=== PATIENT | male | born 1995 | race Caucasian/White ===

== ENCOUNTER 2018-05-23 17:37 | Emergency (ER) | payer SELFPAY ==
[2018-05-23] MEDS ORDERED: TOPI-120 PO (17:59)
[2018-05-23] MEDS ORDERED: MONT10TA PO (17:59)
[2018-05-23 18:54] LABS: PLATELET COUNT, AUTOMATED 331 K/uL (150-450)
--- NOTE | 2018-05-23 19:13 | ER Report ---
History and Physical Time Seen By MD: 18:05 Hx. of Stated Complaint: PAIN IN BOTH SIDES KIDNEYS ONSET April, HX CALCULI HPI/ROS CHIEF COMPLAINT: abdominal pain HISTORY OF PRESENT ILLNESS: Pt developed pain initially near the end of April, intermittent, constant x 1 week; has had bilateral pain that feels like prior kidney stone (last in 5th grade, first at age 6 mo; has always passed on his own , has only been to ED 1 time previously). Pain is greater on right, radiates from flank to right groin. Associated with nausea and intermittent vomiting, no bloody or bilious, has had recent blood in urine, though notes none today REVIEW OF SYSTEMS: Constitutional: No fever, no chills. Eyes: No discharge. ENT: No sore throat. Cardiovascular: No chest pain, no palpitations. Respiratory: No cough, no shortness of breath. Gastrointestinal: above Genitourinary: + hematuria Musculoskeletal: No back pain. Skin: No rashes. Neurological: No headache. Remainder of the 14 system rev: Yes Allergies: Coded Allergies: No Known Drug Allergies (Unverified , 05/23/18) Home Meds Reported Medications Montelukast Sodium (SINGULAIR) 10 Mg Tablet, 1 TAB PO QDAY, TAB 05/23/18 Topiramate (TOPAMAX) 50 Mg Tablet, 50 MG PO BID 05/23/18 Past Medical/Surgical History prior kidney stones Reviewed Nurses Notes: Yes Constitutional Vital Sign - Last 24 Hours 05/23/18 05/23/18 05/23/18 05/23/18 17:50 17:53 18:37 19:07 Pulse 88 83 86 Resp 16 B/P (MAP) 150/91 (110) 150/91 Pulse Ox 98 95 95 O2 Delivery Room Air 05/23/18 05/23/18 05/23/18 05/23/18 19:12 19:42 20:22 20:27 Pulse 97 97 88 98 B/P (MAP) 129/89 (102) Pulse Ox 96 99 97 97 Physical Exam General Appearance: The patient is alert, has no immediate need for airway protection and no signs of toxicity. Eyes: Pupils equal and round no pallor or injection. ENT, Mouth: Mucous membranes are moist. Respiratory: There are no retractions, lungs are clear to auscultation. Cardiovascular: Regular rate and rhythm. [ ] Gastrointestinal: mild rlq ttp Neurological: alert, oriented, nad Skin: Warm and dry, no rashes. Musculoskeletal: Neck is supple non tender. Extremities are nontender, nonswollen and have full range of motion. [ ] DIFFERENTIAL DIAGNOSIS: After history and physical exam differential diagnosis was considered for kidney stone, appendicitis, pyelo or other emergent etiology Medical Decision Making Data Points Result Diagram: 05/23/18 1847 05/23/18 1847 Laboratory Hematology Test 05/23/18 17:45 05/23/18 18:47 Urine Color Straw Urine Clarity Clear Urine pH 6.0 pH (4.8-9.5) Urine Specific [place] 1.013 Urine Protein Negative mg/dL (NEGATIVE) Urine Glucose (UA) Negative mg/dL (NEGATIVE) Urine Ketones Negative mg/dL (NEGATIVE) Urine Blood Negative (NEGATIVE) Urine Nitrite Negative (NEGATIVE) Urine Bilirubin Negative (NEGATIVE) Urine Urobilinogen Negative mg/dL (0.2-1.9) Urine Leukocyte Esterase Negative (NEGATIVE) Urine RBC None /HPF (0-2/HPF) Urine WBC 1 /HPF (0-5/HPF) Urine Squamous Epithelial Cells None /LPF (</=FEW) Urine Bacteria Negative /HPF (NONE-FEW) Urine Mucus None /HPF (NONE-FEW) Red Blood Count 4.98 M/uL (4.00-5.60) Mean Corpuscular Volume 82.6 fL (80.0-96.0) Mean Corpuscular Hemoglobin 30.4 pg (26.0-33.0) Mean Corpuscular Hemoglobin Concent 36.8 g/dL (32.0-36.0) Red Cell Distribution Width 12.9 % (11.5-14.5) Mean Platelet Volume 7.0 fL (7.2-11.1) Neutrophils (%) (Auto) 65.1 % (39.4-72.5) Lymphocytes (%) (Auto) 27.1 % (17.6-49.6) Monocytes (%) (Auto) 6.1 % (4.1-12.4) Eosinophils (%) (Auto) 1.2 % (0.4-6.7) Basophils (%) (Auto) 0.5 % (0.3-1.4) Nucleated RBC Relative Count (auto) 0.0 /100WBC Neutrophils # (Auto) 4.4 K/uL (2.0-7.4) Lymphocytes # (Auto) 1.9 K/uL (1.3-3.6) Monocytes # (Auto) 0.4 K/uL (0.3-1.0) Eosinophils # (Auto) 0.1 K/uL (0.0-0.5) Basophils # (Auto) 0.0 K/uL (0.0-0.1) Nucleated RBC Absolute Count (auto) 0.00 K/uL Sodium Level 144 mmol/L (137-145) Potassium Level 3.8 mmol/L (3.5-5.0) Chloride Level 107 mmol/L (98-107) Carbon Dioxide Level 22 mmol/L (22-30) Blood Urea Nitrogen 20 mg/dl (9-21) Creatinine 0.90 mg/dl (0.66-1.25) Glomerular Filtration Rate Calc > 60.0 Random Glucose 100 mg/dl (75-110) Calcium Level 9.8 mg/dl (8.4-10.2) Total Bilirubin 0.4 mg/dl (0.2-1.3) Aspartate Amino Transf (AST/SGOT) 14 U/L (0-35) Alanine Aminotransferase (ALT/SGPT) 24 U/L (0-56) Alkaline Phosphatase 64 U/L (0-126) Total Protein 7.3 g/dl (6.3-8.2) Albumin 4.6 g/dl (3.5-5.0) Lipase 67 U/L (23-300) Chemistry Test 05/23/18 17:45 05/23/18 18:47 Urine Color Straw Urine Clarity Clear Urine pH 6.0 pH (4.8-9.5) Urine Specific [place] 1.013 Urine Protein Negative mg/dL (NEGATIVE) Urine Glucose (UA) Negative mg/dL (NEGATIVE) Urine Ketones Negative mg/dL (NEGATIVE) Urine Blood Negative (NEGATIVE) Urine Nitrite Negative (NEGATIVE) Urine Bilirubin Negative (NEGATIVE) Urine Urobilinogen Negative mg/dL (0.2-1.9) Urine Leukocyte Esterase Negative (NEGATIVE) Urine RBC None /HPF (0-2/HPF) Urine WBC 1 /HPF (0-5/HPF) Urine Squamous Epithelial Cells None /LPF (</=FEW) Urine Bacteria Negative /HPF (NONE-FEW) Urine Mucus None /HPF (NONE-FEW) White Blood Count 6.8 k/uL (4.5-11.0) Red Blood Count 4.98 M/uL (4.00-5.60) Hemoglobin 15.1 g/dL (14.0-18.0) Hematocrit 41.2 % (42.0-52.0) Mean Corpuscular Volume 82.6 fL (80.0-96.0) Mean Corpuscular Hemoglobin 30.4 pg (26.0-33.0) Mean Corpuscular Hemoglobin Concent 36.8 g/dL (32.0-36.0) Red Cell Distribution Width 12.9 % (11.5-14.5) Platelet Count 331 K/uL (150-450) Mean Platelet Volume 7.0 fL (7.2-11.1) Neutrophils (%) (Auto) 65.1 % (39.4-72.5) Lymphocytes (%) (Auto) 27.1 % (17.6-49.6) Monocytes (%) (Auto) 6.1 % (4.1-12.4) Eosinophils (%) (Auto) 1.2 % (0.4-6.7) Basophils (%) (Auto) 0.5 % (0.3-1.4) Nucleated RBC Relative Count (auto) 0.0 /100WBC Neutrophils # (Auto) 4.4 K/uL (2.0-7.4) Lymphocytes # (Auto) 1.9 K/uL (1.3-3.6) Monocytes # (Auto) 0.4 K/uL (0.3-1.0) Eosinophils # (Auto) 0.1 K/uL (0.0-0.5) Basophils # (Auto) 0.0 K/uL (0.0-0.1) Nucleated RBC Absolute Count (auto) 0.00 K/uL Glomerular Filtration Rate Calc > 60.0 Calcium Level 9.8 mg/dl (8.4-10.2) Total Bilirubin 0.4 mg/dl (0.2-1.3) Aspartate Amino Transf (AST/SGOT) 14 U/L (0-35) Alanine Aminotransferase (ALT/SGPT) 24 U/L (0-56) Alkaline Phosphatase 64 U/L (0-126) Total Protein 7.3 g/dl (6.3-8.2) Albumin 4.6 g/dl (3.5-5.0) Lipase 67 U/L (23-300) Urinalysis Test 05/23/18 17:45 Urine Color Straw Urine Clarity Clear Urine pH 6.0 pH (4.8-9.5) Urine Specific [place] 1.013 Urine Protein Negative mg/dL (NEGATIVE) Urine Glucose (UA) Negative mg/dL (NEGATIVE) Urine Ketones Negative mg/dL (NEGATIVE) Urine Blood Negative (NEGATIVE) Urine Nitrite Negative (NEGATIVE) Urine Bilirubin Negative (NEGATIVE) Urine Urobilinogen Negative mg/dL (0.2-1.9) Urine Leukocyte Esterase Negative (NEGATIVE) Urine RBC None /HPF (0-2/HPF) Urine WBC 1 /HPF (0-5/HPF) Urine Squamous Epithelial Cells None /LPF (</=FEW) Urine Bacteria Negative /HPF (NONE-FEW) Urine Mucus None /HPF (NONE-FEW) ED Course/Re-evaluation ED Course Pt refused pain medications. I performed bedside US; mild hydro on right, bilateral ureteral jets I reviewed ct with patient; pt states he has meds at home and does not want further treatment; he just wanted to make sure he would most likely pass stone. Decision to Disposition Date: May 23, 2018 Decision to Disposition Time: 20:15 Depart Departure Latest Vital Signs Vital Signs Date Time Temp Pulse Resp B/P (MAP) Pulse Ox O2 Delivery O2 Flow Rate FiO2 05/23/18 20:27 98 129/89 (102) 97 05/23/18 17:53 16 Room Air Impression: Primary Impression: Kidney stone on right side Condition: Improved Disposition: HOME OR SELF-CARE Patient Instructions: Kidney Stones (ED) TERENCE ROBERTS MD May 23, 2018 19:12
--- NOTE | 2018-05-23 19:21 | RADIOLOGY IMAGING REPORT ---
FACILITY: [facility] PATIENT NAME: Gage Chapa : 1995 MR: [id number] V: [id number] EXAM DATE: ORDERING PHYSICIAN: TERENCE ROBERTS TECHNOLOGIST: Location: [facility] - [place] Patient: Gage Chapa : 1995 Visit/Account:[id number] Date of Sevice: 05/23/2018 EXAMINATION: CT ABDOMEN AND PELVIS WITHOUT CONTRAST COMPARISON: None. HISTORY: Right-sided flank pain. PROCEDURE: Multiplanar noncontrast CT of the abdomen and pelvis. One of the following dose optimizati on techniques was utilized in the performance of this exam: Automated exposure control; adjustment of the mA and/or kV according to the patient's size; or use of an iterative reconstruction technique. Specific details can be referenced in the facility's radiology CT exam operational policy. FINDINGS: Evaluation of the solid and viscus parenchymal organs and vascular structures is limited wi thout the benefit of IV contrast. Visualized thorax: Negative. Liver: Noncontrast imaging of the visualized liver is within normal limits. Gallbladder and biliary system: Negative Spleen: Negative. Pancreas: Noncontrast imaging of the pancreas is within normal limits. Adrenal glands: Negative. Kidneys and bladder: Mild right-sided hydroureteronephrosis due to a 4 mm stone in the distal right u reter approximately 6 cm from the ureterovesical junction. No other radiopaque urolithiasis is identi fied. No left-sided hydronephrosis. Urinary bladder is unremarkable. Vessels: Within normal limits. Bowel and mesentery: Stomach, small bowel, and appendix are unremarkable. Small amount of stool in th e colon. No bowel or mesenteric inflammation. Pelvic organs: Negative. Lymph nodes: No adenopathy. Free air/free fluid: None. Abdominal wall and osseous structures: Negative. IMPRESSION: Mild right-sided hydroureteronephrosis due to a 4 mm stone in the distal right ureter approximately 6 cm from the ureterovesical junction. Report Dictated By: Jayden Craft MD at 05/23/2018 7:13 PM Report E-Signed By: Jayden Craft MD at 05/23/2018 7:16 PM [id number]
[2018-05-23 20:27] VITALS: BP 129/89
== END 2018-05-23 20:26 | disposition home or self-care (01) ==
LOC: ER 18:32
DX: N20.0 Calculus of kidney (principal); Z87.442 Personal history of urinary calculi
CPT/HCPCS: 36415; 74176; 81001; 82040; 82247; 82310; 82374; 82435; 82565; 82947; 83690; 84075; 84132; 84155; 84295; 84450; 84460; 84520; 85025; 99284

== ENCOUNTER 2018-05-31 03:21 | Day surgery (SDC) | payer BC ==
[~2018-05-31 03:21] MED LIST: MONT10TA PO; TOPI-120 PO
--- NOTE | 2018-05-31 03:33 | ER Report ---
History and Physical Time Seen By MD: 03:35 HPI/ROS CHIEF COMPLAINT: right flank and abdominal pain HISTORY OF PRESENT ILLNESS: This is a 22 year old male. He was seen 1 week ago here in the ER and diagnosed with a kidney stone. Home with conservative management after CT scan and bedside ultrasound diagnosed a 4mm stone about 6cm from the UVJ. Still having pain all week, worsening. Now with worsened pain, worsening nausea/vomiting. Has been working through the pain, using over the counter anti-inflammatories. No fevers or chills at this time. Difficult time urinating. Nothing makes the pain worse and nothing is really helping it at this time. Allergies: Coded Allergies: No Known Drug Allergies (Unverified , 05/23/18) Home Meds Reported Medications Hydrocodone Bit/Acetaminophen (NORCO 5-325 TABLET) 1 Each Tablet, 1-2 EACH PO Q6H Y for PAIN, #30 TAB 05/31/18 Docusate Sodium (COLACE) 100 Mg Capsule, 100 MG PO BID for STOOL SOFTENER, #30 CAPSULE 05/31/18 Ibuprofen (IBUPROFEN) 600 Mg Tablet, 1 TAB PO Q6H Y for PAIN, #20 TAB 05/31/18 Oxybutynin Chloride (DITROPAN XL) 10 Mg Tab.er.24, 10 MG PO QDAY, #20 TAB 05/31/18 Phenazopyridine Hcl (PHENAZOPYRIDINE HCL) 200 Mg Tablet, 200 MG PO TID Y for BURNING WITH URINATION, #30 TAB 05/31/18 Montelukast Sodium (SINGULAIR) 10 Mg Tablet, 1 TAB PO QDAY, TAB 05/23/18 Topiramate (TOPAMAX) 50 Mg Tablet, 50 MG PO BID 05/23/18 Reviewed Nurses Notes: Yes Constitutional Vital Sign - Last 24 Hours 05/31/18 05/31/18 05/31/18 05/31/18 03:28 03:34 03:36 03:51 Temp 98.9 Pulse 91 89 92 Resp 16 B/P (MAP) 140/99 142/94 (110) Pulse Ox 98 96 96 O2 Delivery Room Air 05/31/18 05/31/18 05/31/18 05/31/18 04:00 04:06 04:23 04:30 Pulse 87 B/P (MAP) 146/97 (113) 133/84 (100) 124/79 (94) 05/31/18 05/31/18 05/31/18 05/31/18 04:36 04:51 05:00 05:06 Pulse 77 83 85 B/P (MAP) 131/87 (102) Pulse Ox 95 96 99 05/31/18 05/31/18 05/31/18 05/31/18 05:11 05:30 05:41 05:56 Pulse 81 77 81 B/P (MAP) 131/86 (101) Pulse Ox 97 97 96 05/31/18 05/31/18 05/31/18 05/31/18 06:00 06:05 06:10 06:15 Pulse 73 82 ??? B/P (MAP) 119/83 (95) Pulse Ox 95 96 95 05/31/18 05/31/18 05/31/18 05/31/18 06:20 06:25 06:30 06:35 Pulse 75 74 70 67 B/P (MAP) 125/85 (98) Pulse Ox 96 94 95 05/31/18 05/31/18 05/31/18 05/31/18 06:40 06:45 07:00 07:15 Pulse 67 64 76 B/P (MAP) 123/86 (98) Pulse Ox 94 94 97 05/31/18 05/31/18 05/31/18 07:30 07:45 07:50 Pulse 82 82 Resp 9 13 B/P (MAP) 124/88 (100) Pulse Ox 95 96 Physical Exam General Appearance: The patient is alert. Acute distress due to the pain and vomiting. Eyes: Pupils are equal, round. No pallor, injection or icterus. ENT: Mucous membranes are moist. Respiratory: Lungs are clear to auscultation. Cardiovascular: Regular rate and rhythm. No murmurs, gallops or rubs. Gastrointestinal: Abdomen is soft with some tenderness in the right abdomen and flank at the CVA on the right. Guarding, but no rebound. Normal active bowel sounds. Neurological: Alert and oriented x3. Skin: Warm and dry. Musculoskeletal: Extremities are nontender. No tenderness in palpation of the cervical, thoracic and lumbar spine. DIFFERENTIAL DIAGNOSIS: After history and physical exam, differential diagnosis was considered for ongoing pain on the right abdomen with history of recent stone, sounds like the stone is not passed and most likely this is further pain from kidney stone Medical Decision Making Data Points Result Diagram: 05/31/18 0334 05/31/18 0334 Laboratory Hematology Test 05/31/18 03:26 05/31/18 03:34 Urine Color Yellow Urine Clarity Clear Urine pH 5.0 pH (4.8-9.5) Urine Specific [place] 1.019 Urine Protein Negative mg/dL (NEGATIVE) Urine Glucose (UA) Negative mg/dL (NEGATIVE) Urine Ketones Negative mg/dL (NEGATIVE) Urine Blood Small (NEGATIVE) Urine Nitrite Negative (NEGATIVE) Urine Bilirubin Negative (NEGATIVE) Urine Urobilinogen Negative mg/dL (0.2-1.9) Urine Leukocyte Esterase Negative (NEGATIVE) Urine RBC 7 /HPF (0-2/HPF) Urine WBC 2 /HPF (0-5/HPF) Urine Squamous Epithelial Cells None /LPF (</=FEW) Urine Bacteria Negative /HPF (NONE-FEW) Urine Mucus Few /HPF (NONE-FEW) Red Blood Count 4.97 M/uL (4.00-5.60) Mean Corpuscular Volume 83.3 fL (80.0-96.0) Mean Corpuscular Hemoglobin 30.8 pg (26.0-33.0) Mean Corpuscular Hemoglobin Concent 36.9 g/dL (32.0-36.0) Red Cell Distribution Width 13.1 % (11.5-14.5) Mean Platelet Volume 7.5 fL (7.2-11.1) Neutrophils (%) (Auto) % (39.4-72.5) Lymphocytes (%) (Auto) % (17.6-49.6) Monocytes (%) (Auto) % (4.1-12.4) Eosinophils (%) (Auto) % (0.4-6.7) Basophils (%) (Auto) % (0.3-1.4) Nucleated RBC Relative Count (auto) /100WBC Neutrophils # (Auto) K/uL (2.0-7.4) Lymphocytes # (Auto) K/uL (1.3-3.6) Monocytes # (Auto) K/uL (0.3-1.0) Eosinophils # (Auto) K/uL (0.0-0.5) Basophils # (Auto) K/uL (0.0-0.1) Nucleated RBC Absolute Count (auto) K/uL Neutrophils % (Manual) 87 % (39.4-72.5) Band Neutrophils % 1 % Lymphocytes % (Manual) 7 % (17.6-49.6) Atypical Lymphocytes % 3 % Monocytes % (Manual) 2 % (4.1-12.4) Eosinophils % (Manual) 0 % (0.4-6.7) Basophils % (Manual) 0 % (0.3-1.4) Peripheral Blood Smear Yes Y/N Sodium Level 138 mmol/L (137-145) Potassium Level 3.4 mmol/L (3.5-5.0) Chloride Level 107 mmol/L (98-107) Carbon Dioxide Level 18 mmol/L (22-30) Blood Urea Nitrogen 20 mg/dl (9-21) Creatinine 1.40 mg/dl (0.66-1.25) Glomerular Filtration Rate Calc > 60.0 Random Glucose 122 mg/dl (75-110) Calcium Level 9.6 mg/dl (8.4-10.2) Total Bilirubin 0.7 mg/dl (0.2-1.3) Aspartate Amino Transf (AST/SGOT) 14 U/L (0-35) Alanine Aminotransferase (ALT/SGPT) 21 U/L (0-56) Alkaline Phosphatase 73 U/L (0-126) C-Reactive Protein 0.5 mg/dl (<1.0) Total Protein 7.3 g/dl (6.3-8.2) Albumin 4.8 g/dl (3.5-5.0) Chemistry Test 05/31/18 03:26 05/31/18 03:34 Urine Color Yellow Urine Clarity Clear Urine pH 5.0 pH (4.8-9.5) Urine Specific [place] 1.019 Urine Protein Negative mg/dL (NEGATIVE) Urine Glucose (UA) Negative mg/dL (NEGATIVE) Urine Ketones Negative mg/dL (NEGATIVE) Urine Blood Small (NEGATIVE) Urine Nitrite Negative (NEGATIVE) Urine Bilirubin Negative (NEGATIVE) Urine Urobilinogen Negative mg/dL (0.2-1.9) Urine Leukocyte Esterase Negative (NEGATIVE) Urine RBC 7 /HPF (0-2/HPF) Urine WBC 2 /HPF (0-5/HPF) Urine Squamous Epithelial Cells None /LPF (</=FEW) Urine Bacteria Negative /HPF (NONE-FEW) Urine Mucus Few /HPF (NONE-FEW) White Blood Count 11.2 k/uL (4.5-11.0) Red Blood Count 4.97 M/uL (4.00-5.60) Hemoglobin 15.3 g/dL (14.0-18.0) Hematocrit 41.4 % (42.0-52.0) Mean Corpuscular Volume 83.3 fL (80.0-96.0) Mean Corpuscular Hemoglobin 30.8 pg (26.0-33.0) Mean Corpuscular Hemoglobin Concent 36.9 g/dL (32.0-36.0) Red Cell Distribution Width 13.1 % (11.5-14.5) Platelet Count 274 K/uL (150-450) Mean Platelet Volume 7.5 fL (7.2-11.1) Neutrophils (%) (Auto) % (39.4-72.5) Lymphocytes (%) (Auto) % (17.6-49.6) Monocytes (%) (Auto) % (4.1-12.4) Eosinophils (%) (Auto) % (0.4-6.7) Basophils (%) (Auto) % (0.3-1.4) Nucleated RBC Relative Count (auto) /100WBC Neutrophils # (Auto) K/uL (2.0-7.4) Lymphocytes # (Auto) K/uL (1.3-3.6) Monocytes # (Auto) K/uL (0.3-1.0) Eosinophils # (Auto) K/uL (0.0-0.5) Basophils # (Auto) K/uL (0.0-0.1) Nucleated RBC Absolute Count (auto) K/uL Neutrophils % (Manual) 87 % (39.4-72.5) Band Neutrophils % 1 % Lymphocytes % (Manual) 7 % (17.6-49.6) Atypical Lymphocytes % 3 % Monocytes % (Manual) 2 % (4.1-12.4) Eosinophils % (Manual) 0 % (0.4-6.7) Basophils % (Manual) 0 % (0.3-1.4) Peripheral Blood Smear Yes Y/N Glomerular Filtration Rate Calc > 60.0 Calcium Level 9.6 mg/dl (8.4-10.2) Total Bilirubin 0.7 mg/dl (0.2-1.3) Aspartate Amino Transf (AST/SGOT) 14 U/L (0-35) Alanine Aminotransferase (ALT/SGPT) 21 U/L (0-56) Alkaline Phosphatase 73 U/L (0-126) C-Reactive Protein 0.5 mg/dl (<1.0) Total Protein 7.3 g/dl (6.3-8.2) Albumin 4.8 g/dl (3.5-5.0) Urinalysis Test 05/31/18 03:26 Urine Color Yellow Urine Clarity Clear Urine pH 5.0 pH (4.8-9.5) Urine Specific [place] 1.019 Urine Protein Negative mg/dL (NEGATIVE) Urine Glucose (UA) Negative mg/dL (NEGATIVE) Urine Ketones Negative mg/dL (NEGATIVE) Urine Blood Small (NEGATIVE) Urine Nitrite Negative (NEGATIVE) Urine Bilirubin Negative (NEGATIVE) Urine Urobilinogen Negative mg/dL (0.2-1.9) Urine Leukocyte Esterase Negative (NEGATIVE) Urine RBC 7 /HPF (0-2/HPF) Urine WBC 2 /HPF (0-5/HPF) Urine Squamous Epithelial Cells None /LPF (</=FEW) Urine Bacteria Negative /HPF (NONE-FEW) Urine Mucus Few /HPF (NONE-FEW) EKG/Imaging Imaging ABDOMEN/PELVIS W/O CONTRAST HISTORY: Right flank pain and nausea and vomiting. Scan several days ago demonstrated right ureteral stone. Patient states no knowledge of stone passing. COMPARISON: 05/23/2018. TECHNIQUE: Axial images were obtained from the lung bases through the symphysis pubis without intravenous contrast. Sagittal and coronal reformats were performed. One of the following dose optimization techniques was utilized in the performance of this exam: Automated exposure control; adjustment of the mA and/ or kV according to the patient's size; or use of an iterative reconstruction technique. Specific details can be referenced in the facility's radiology CT exam operational policy. CONTRAST: None. FINDINGS: Lower chest: Normal. Liver: Normal. Gallbladder/biliary: Normal. Pancreas: Normal. Spleen: Enlarged, measuring 14.7 cm (sagittal image 99). Adrenals: Normal. Kidneys/ureters/bladder: Right-sided hydronephrosis and hydroureter have progressed, now moderate, and there is new right perinephric and periureteral stranding. 5 mm obstructing distal right ureteral calculus has migrated more inferiorly and is now within 1.5 cm of the bladder. The left kidney, the left ureter, and the bladder are normal. GI/mesentery/peritoneal cavity: There is no bowel obstruction. There is no wall thickening or pericolonic stranding. The appendix is normal. No free air or free fluid. Vessels: No aneurysm or significant atherosclerotic disease. Nodes: Normal. Pelvis: Normal. Bones/vertebra/soft tissues: Minimal wedging of T11 and T12 is unchanged and is likely physiologic. There is mild degenerative disc disease. IMPRESSION: 1. The 5 mm obstructing calculus in the right ureter has migrated to within 1.5 cm of the latter. It is causing persistent hydronephrosis and hydroureter, which has progressed and is now moderate. There is also new mild right perinephric and periureteral stranding. 2. Splenomegaly. Report Dictated By: Honey Guevara at 05/31/2018 4:37 AM ED Course/Re-evaluation Clinical Indication for ER IV: Hydration, IV Access ED Course The patient had an IV started. We gave him morphine, Toradol for pain. Also gave some Zofran to help with the nausea. He also received a liter fluid. Did give him an oral dose of 0.[address] scan shows the stone is moved, but there is no moderate hydronephrosis and his creatinine has elevated. He does have a slight elevated white count with left shift with a little bit of perinephric stranding. Reviewed the findings with the patient and discussed that we would either continue conservative management, or discuss other options with the urologist, Dr. Carrion. I called Dr. Carrion, who indicated that either way would be fine at this time and he could get him on the morning schedule in the OR for ureteroscopy and possible ESWL today. Discussed this with the patient and he will stay to have Dr. Carrion look at what can be done. We let the nursing maintenance and custodian supervisor know and will be planning on intervention today. The patient has been NPO since about 8pm last night. The only intake has been a small sip of water with the Flomax this morning. Decision to Disposition Date: May 31, 2018 Decision to Disposition Time: 05:32 Depart Departure Latest Vital Signs Vital Signs Date Time Temp Pulse Resp B/P (MAP) Pulse Ox O2 Delivery O2 Flow Rate FiO2 05/31/18 07:50 82 13 96 05/31/18 07:30 124/88 (100) 05/31/18 03:28 98.9 Room Air Impression: Primary Impression: Kidney stone on right side Condition: Condition Unchanged Disposition[facility] May 31, 2018 03:33
[2018-05-31] MEDS ORDERED: KETOROLAC 30 MG/ML VIAL IVP ONE (03:50)
[2018-05-31] MEDS ORDERED: ONDANSETRON 4 MG/2 ML VIAL IVP ONE (03:50)
[2018-05-31] MEDS ORDERED: MORPHINE 4 MG/ML SDV IVP ONE (03:50)
[2018-05-31] MEDS ORDERED: NS(*) 0.9% 1000 ML BAG 1,000 ML IV ONE (03:50)
[2018-05-31] MEDS ORDERED: TAMSULOSIN HCL 0.4 MG CAP PO ONE (03:50)
[2018-05-31 04:09] LABS: PLATELET COUNT, AUTOMATED 274 K/uL (150-450)
--- NOTE | 2018-05-31 04:49 | RADIOLOGY IMAGING REPORT ---
FACILITY: PATIENT NAME: Gage Chapa : 1995 MR: [id number] V: [id number] EXAM DATE: ORDERING PHYSICIAN: SHAE MURO TECHNOLOGIST: Location[place] [facility] [place] Patient: Gage Chapa : 1995 Visit/Account:[id number] Date of Sevice: 05/31/2018 ABDOMEN/PELVIS W/O CONTRAST HISTORY: Right flank pain and nausea and vomiting. Scan several days ago demonstrated right ureteral stone. Patient states no knowledge of stone passing. COMPARISON: 05/23/2018. TECHNIQUE: Axial images were obtained from the lung bases through the symphysis pubis without intrave nous contrast. Sagittal and coronal reformats were performed. One of the following dose optimization techniques was utilized in the performance of this exam: Autom ated exposure control; adjustment of the mA and/or kV according to the patient's size; or use of an i terative reconstruction technique. Specific details can be referenced in the facility's radiology CT exam operational policy. CONTRAST: None. FINDINGS: Lower chest: Normal. Liver: Normal. Gallbladder/biliary: Normal. Pancreas: Normal. Spleen: Enlarged, measuring 14.7 cm (sagittal image 99). Adrenals: Normal. Kidneys/ureters/bladder: Right-sided hydronephrosis and hydroureter have progressed, now moderate, an d there is new right perinephric and periureteral stranding. 5 mm obstructing distal right ureteral c alculus has migrated more inferiorly and is now within 1.5 cm of the bladder. The left kidney, the le ft ureter, and the bladder are normal. GI/mesentery/peritoneal cavity: There is no bowel obstruction. There is no wall thickening or pericol onic stranding. The appendix is normal. No free air or free fluid. Vessels: No aneurysm or significant atherosclerotic disease. Nodes: Normal. Pelvis: Normal. Bones/vertebra/soft tissues: Minimal wedging of T11 and T12 is unchanged and is likely physiologic. T here is mild degenerative disc disease. IMPRESSION: 1. The 5 mm obstructing calculus in the right ureter has migrated to within 1.5 cm of the latter. It is causing persistent hydronephrosis and hydroureter, which has progressed and is now moderate. There is also new mild right perinephric and periureteral stranding. 2. Splenomegaly. Report Dictated By: Honey Guevara at 05/31/2018 4:37 AM Report E-Signed By: Honey Guevara at 05/31/2018 4:46 AM WSN:[id number]
[2018-05-31] MEDS ORDERED: LIDOCAINE 2% IV 100 MG/5ML SYR IVP ONE (07:25)
[2018-05-31] MEDS ORDERED: METOCLOPRAMIDE 10 MG/2 ML SDV IVP ONE (08:30)
[2018-05-31] MEDS ORDERED: HYDROMORPHONE HCL 1 MG/ML SYRINGE IVP ONE (09:20)
[2018-05-31] MEDS ORDERED: FAMOTIDINE 20 MG TAB PO ONE (10:50)
[2018-05-31] MEDS ORDERED: MIDAZOLAM 2 MG/2 ML VIAL IVP PRN (10:50)
[2018-05-31] MEDS ORDERED: NORMOSOL R SOLN(*) 1000 ML BAG 1,000 ML IV PRN (10:50)
--- NOTE | 2018-05-31 10:56 | HISTORY AND PHYSICAL ---
DATE OF ADMISSION: May 31, 2018 CHIEF COMPLAINT Right flank pain secondary to kidney stone. HISTORY OF PRESENT ILLNESS The patient is a 22-year-old white male with a long history of kidney stones who originally presented to the emergency room on May 23, 2018 with right flank pain. At that time, a CT scan was obtained, which revealed mild right sided hydronephrosis to a 4 mm distal stone approximately 6 cm above the UVJ. The patient was discharged home on conservative therapy. 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 At this time, laboratory data was repeated. He had a slightly elevated white count of 11.2 with 87% neutrophils. His creatinine had increased to 1.[address] scan now showed the stone migrated slightly inferior towards the bladder, approximately 1.5 to 2 cm from the UVJ. However, he had significant increase in the right sided nephrosis and right ureter with development of significant right perinephric stranding. By my evaluation, the stone appears to be more closely to a 6x4 mm in size. No other stones or abnormalities were identified. The patient is now being admitted for urologic intervention with possible stent placement ureteroscopy and extracorporeal shock wave lithotripsy if indicated. PAST MEDICAL HISTORY 1. Kidney stones for many years. The patient reports them being calcium type but it is unclear whether he has had a true metabolic evaluation. 2. Asthma. 3. Sinus polyps. 4. Headaches. PAST SURGICAL HISTORY Sinus surgery. ALLERGIES No known drug allergies. CURRENT MEDICATIONS 1. Singulair. 2. Topamax. SOCIAL HISTORY Patient is and lives in [place], [place]. He is originally from [place]. REVIEW OF SYSTEMS Patient denies fever, chills, gross hematuria, bleeding disorder, chest pain, productive cough or liver disease.] PHYSICAL EXAMINATION Patient is a well-developed, well-nourished white male in no acute distress. HEENT: Normocephalic/atraumatic. CHEST: Clear to auscultation bilaterally. CV: Regular rate and rhythm.. ABDOMEN: Soft, nontender. No masses palpated. BACK: Normal appearing spine. He has moderate right CVAT. : Normal. EXTREMITIES: Without clubbing, cyanosis or edema. NEURO: Nonfocal. ASSESSMENT Patient is a 22-year-old white male with obstructing distal right ureteral stone measuring 6x4 mm with significant hydronephrosis and elevated creatinine. PLAN We will perform anesthetic cystoscopy followed by stent placement ureteroscopy and/or extracorporeal shock wave lithotripsy as indicated. MTDD
[2018-05-31] MEDS ORDERED: fentaNYL CITR 100 MCG/2 ML AMP IVP ONE (11:05)
[2018-05-31] MEDS ORDERED: fentaNYL CITR 100 MCG/2 ML AMP ONE (11:44)
[2018-05-31] MEDS ORDERED: LIDOCAINE MPF 1% 5 ML VIAL ONE (11:45)
[2018-05-31] MEDS ORDERED: ONDANSETRON 4 MG/2 ML VIAL ONE (11:45)
[2018-05-31] MEDS ORDERED: PROPOFOL EMUL(*) 10MG/ML 20 ML 20 ML ONE (11:45)
[2018-05-31] MEDS ORDERED: DEXAMETHASONE SOD PHOS 10MG/ML ONE (11:45)
[2018-05-31] MEDS ORDERED: KETAMINE HCL 200 MG/20 ML MDV ONE (11:47)
[2018-05-31] MEDS ORDERED: HALOPERIDOL LACT 5 MG/ML VIAL IM ONE (11:50)
[2018-05-31] MEDS ORDERED: CEFAZOLIN PREM 1 GM/D5W 50 ML 50 ML IVPB SCH (11:55)
[2018-05-31] MEDS ORDERED: ceFAZolin(*) 1 GM VIAL 1 GM in NS(*) 0.9% 100 ML ADDVANT BAG 100 ML IV ONE (12:10)
[2018-05-31] MEDS ORDERED: KETOROLAC 30 MG/ML VIAL ONE (13:03)
[2018-05-31] MEDS ORDERED: BELLADONNA ALK/OPIUM 60MG SUPP PR ONE (13:08)
[2018-05-31] MEDS ORDERED: PHEN200T32 PO (13:38)
[2018-05-31] MEDS ORDERED: OXYB10TA21 PO (13:39)
[2018-05-31] MEDS ORDERED: IBUP600T22 PO (13:39)
[2018-05-31] MEDS ORDERED: DOCU-416 PO (13:40)
[2018-05-31] MEDS ORDERED: HYDR-4309 PO (13:41)
[2018-05-31 13:51] VITALS: BP 129/82
[2018-05-31 14:23] VITALS: BP 122/85
[2018-05-31 14:49] VITALS: BP 122/84
--- NOTE | 2018-05-31 15:09 | OPERATIVE REPORT 1 ---
EVENT DATE: May 31, 2018 SURGEON: Macario Carrion MD ANESTHESIOLOGIST: Dinesh Leonard MD ANESTHESIA: General anesthetic. PREOPERATIVE DIAGNOSIS Right distal ureteral calculus. POSTOPERATIVE DIAGNOSIS Impacted right distal ureteral calculus measuring 6 x 4 mm. PROCEDURES PERFORMED 1. Cystoscopy. 2. Right retrograde pyelogram. 3. Right internal double-J ureteral stent placement. ESTIMATED BLOOD LOSS 10 mL INTRAVENOUS FLUIDS Crystalloid. DRAINS 6-Tuvaluan x 26 cm Contour stent on right. COMPLICATIONS None. CONDITION Patient taken to recovery room awake and in stable condition. STATEMENT OF MEDICAL NECESSITY Patient is a 22-year-old white male with a long history of kidney stones who presented to the Emergency Room approximately one week ago with right flank pain. At that time, he was found to have a distal right stone approximately 6 cm above his right ureteral orifice. He represented to the Emergency Room with increasing pain. CT scan revealed the stone was now approximately 1 to 2 cm from the right ureteral orifice; however, he had significantly more hydronephrosis, perinephric ureteral stranding, and it has gradually increased to 1.4. He is now being brought to the operating room for planned urologic intervention with stent placement, possible ureteroscopy, and ESWL as indicated. Specific risks and benefits were discussed with the patient and his , including bleeding, infection, failure to remove all stones or stone fragments, ureteral stent discomfort, and need for another procedure. DESCRIPTION OF OPERATION PERFORMED Patient was brought to the operating room. After general anesthetic was obtained, he was placed in the dorsal lithotomy position and prepped and draped in the usual sterile manner. Anesthetic cystoscopy was performed using the 21- Tuvaluan rigid scope with both 30- and 70-degree lenses. He had a normal- appearing pendulous, bulbar, membranous, and prostatic urethra. His bladder mucosa was smooth, without tumors. He had slit-like ureteral orifices. The right ureteral orifice was cannulated with a 6-Tuvaluan opening access catheter for approximately 1 cm length, and a retrograde pyelogram was performed. At this point, only the very distal ureter filled with most of the contrast coming back out around the catheter into the bladder. It was difficult to see the stone exact location, but I felt it was approximately 2 cm above where the end of the stent was. After several minutes of manipulation, I could not advance the stent beyond the stone. Therefore, a 0.035 wire double floppy was used to try to negotiate past the stone. Again, this was unsuccessful. At this point, a dilute mixture of contrast with water and lubricating jelly was used to perform another retrograde pyelogram. This one did fill the ureter, which was moderately dilated above the level of the stone. At this point, a straight-tip Glidewire was then used, and after stone manipulation, I was eventually able to pass it beyond the stone up to the renal pelvis. The access catheter was then advanced beyond the stone without undue pressure up to the proximal ureter. The access catheter was then used to replace the Glidewire with a regular type wire. The access catheter was removed. An 18 dilating system was then attempted to be placed. The 8 sheath advanced to the stone without difficulty. At the level of the stone, there was a moderate amount of discomfort, but I was able to advance it up to the renal pelvis. I attempted to place the 10 sheath. Several attempts to place it beyond the stone were unsuccessful using moderate pressure. It was, therefore, felt at this point that we would place a ureteral stent to allow some passive ureteral dilation over the course of a week or two and then return for definitive stone treatment given the impacted nature of this calculus. Therefore, the wire was left in place, and the 8 sheath was removed. This wire was then backloaded into the scope, and it was used to place a 6-Tuvaluan x 26 cm Contour stent. The wire was removed. It was noted to have good curling the kidney by fluoroscopy and good curling in the bladder by direct vision. The patient's bladder was drained through the cystoscopic sheath. A B and O suppository was given per rectum. He was awakened in the operating room and taken to the recovery area in stable condition. PLAN The plan will be to let the patient be discharged home today on [place], Colace, Ditropan XL, Pyridium, and Motrin. Will have him return to the operating room in approximately seven to 14 days for followup ureteroscopy with stone manipulation versus ESWL and stent removal. BELLO
[2018-05-31 15:20] VITALS: BP 123/87
[2018-05-31 15:22] VITALS: BP 119/79
--- NOTE | 2018-05-31 15:56 | RADIOLOGY IMAGING REPORT ---
FACILITY: [facility] - [place] PATIENT NAME: Gage Chapa : 1995 MR: [id number] V: [id number] EXAM DATE: ORDERING PHYSICIAN: VICTOR HUGO SHARMA TECHNOLOGIST: Location: [facility] - [place] Patient: Gage Chapa : 1995 Visit/Account:[id number] Date of Sevice: 05/31/2018 RETROGRADE PYELOGRAM HISTORY: URETERAL/KIDNEY STONES COMPARISON: CT abdomen pelvis earlier today which demonstrates a 5 mm stone lodged close to the righ t ureterovesical junction. FINDINGS: Serial fluoroscopic images demonstrate placement of a right-sided ureteral stent under fluoroscopic g uidance. The previously seen stone is not well-visualized. Fluoroscopy time: 0.58 minutes Dose: DAP: 24.8 mGy-m2 IMPRESSION: Successful fluoroscopic-guided right ureteral stent placement Report Dictated By: Rafael Kelley MD at 05/31/2018 3:50 PM Report E-Signed By: Rafael Kelley MD at 05/31/2018 3:53 PM WSN:[id number]
== END 2018-05-31 13:55 | disposition home or self-care (01) ==
LOC: ER 03:40 → OR 07:55
PROVIDERS: ATTEND Surgery
DX: N20.0 Calculus of kidney (principal)
CPT/HCPCS: 52332; 74176; 74420; 81001; 85025; 86140; 96374; 96375; 99284; C1758; C1769; C1894; C2617; J0690; J1100; J1170; J1630; J1885; J2001; J2250; J2270; J2405; J2704; J2765; J3010; J3490; J7030; 82040; 82247; 82310; 82374; 82435; 82565; 82947; 84075; 84132; 84155; 84295; 84450; 84460; 84520

== ENCOUNTER 2018-06-11 01:30 | Day surgery (SDC) | payer BC ==
--- NOTE | 2018-06-08 14:44 | HISTORY AND PHYSICAL ---
DATE OF ADMISSION: June 11, 2018 CHIEF COMPLAINT Kidney stone with indwelling stent. HISTORY OF PRESENT ILLNESS Patient is a 22-year-old white male with a long history of kidney stones who presented to the Emergency Room on the 23 of May with right flank pain. He was treated conservatively; however, he returned one week later with continued pain. He was subsequently taken to the operating room on the 31 of May. At that time, he was found to have an impacted right distal ureteral calculus measuring 6 x 4 mm. A double-J stent was placed. He is now being returned to the operating room for definitive stone treatment with possible ureteroscopy and/or extracorporeal shock wave lithotripsy as indicated. PAST MEDICAL HISTORY 1. Kidney stones. 2. Asthma. 3. Sinus polyps. 4. Headaches. PAST SURGICAL HISTORY 1. Sinus surgery. 2. Right stent placement. ALLERGIES No known drug allergies. CURRENT MEDICATIONS 1. Singulair. 2. Topamax. 3. [place]. 4. Colace. 5. Ditropan XL. 6. Pyridium. SOCIAL HISTORY Patient is currently living in [place], [place], with his . He is originally from [place]. REVIEW OF SYSTEMS Patient denies chest pain, shortness of breath, productive cough, nausea, vomiting, fever, chills, liver disease, or bleeding disorder. PHYSICAL EXAMINATION GENERAL: Patient is a well-developed, well-nourished, white male in no acute distress. HEENT: Normocephalic, atraumatic. CHEST: Clear to auscultation bilaterally. CARDIOVASCULAR: Regular rate and rhythm. ABDOMEN: Soft, nontender. No masses are palpated. GENITOURINARY: Deferred to the OR. EXTREMITIES: Without clubbing, cyanosis, or edema. NEUROLOGIC: Nonfocal. IMPRESSION A 22-year-old white male with impacted distal right ureteral stone with current indwelling stent. PLAN Will perform anesthetic cystoscopy, stent removal, ureteroscopy and/or extracorporeal shock wave lithotripsy as indicated. BELLO
[~2018-06-11] VITALS: Ht 175.3 cm; Wt 72.6 kg
[~2018-06-11 01:30] MED LIST changes: +DOCU-416 PO; +HYDR-4309 PO; +IBUP600T22 PO; +OXYB10TA21 PO; +PHEN200T32 PO
[2018-06-11] MEDS ORDERED: fentaNYL CITR 100 MCG/2 ML AMP ONE ×3 (10:00→14:29)
[2018-06-11] MEDS ORDERED: LIDOCAINE MPF 1% 5 ML VIAL ONE (10:00)
[2018-06-11] MEDS ORDERED: PROPOFOL EMUL(*) 10MG/ML 20 ML 20 ML ONE (10:00)
[2018-06-11] MEDS ORDERED: DEXAMETHASONE SOD 4 MG/ML VIAL ONE (10:00)
[2018-06-11] MEDS ORDERED: ONDANSETRON 4 MG/2 ML VIAL ONE (10:00)
[2018-06-11 10:18] VITALS: BP 129/88
--- NOTE | 2018-06-11 11:41 | RADIOLOGY IMAGING REPORT ---
[place] [facility] [place] NAME: Gage Chapa : 1995 MR: [id number] V: [id number] EXAM DATE: ORDERING PHYSICIAN: VICTOR HUGO SHARMA TECHNOLOGIST[place] [facility] [place] [place]age [place] : 1995 Visit/Account:[id number] Date of Sevice: 06/11/2018 CT abdomen pelvis without contrast HISTORY: Nephrolithiasis TECHNIQUE: CT abdomen and pelvis without intravenous contrast. Contiguous axial images of the abdom en and pelvis was performed from the lung bases to the symphysis pubis. One of the following dose optimization techniques was utilized in the performance of this exam: Autom ated exposure control; adjustment of the mA and/or kV according to the patient's size; or use of an i terative reconstruction technique. Specific details can be referenced in the facility's radiology C T exam operational policy. CONTRAST: None. COMPARISON: CT scan 05/31/2018 FINDINGS: Visualized lung bases: Scattered areas of airspace disease in both lower lobes is likely inflammator y in this age group a new from prior examination. Hepatobiliary: Negative. Spleen: Mildly enlarged measures 13.6 cm in craniocaudal length. Adrenals: Negative. Kidneys/: There is a right ureteral stent in good position. 4 x 2 mm stone projects anterior to t he stent in the distal right ureter (series 2, image 173). No evidence for hydronephrosis. No other visualized renal or ureteral stones. Pancreas: Negative. GI: Negative. Vessels/spaces/nodes: Negative. Bones/soft tissues: Negative. IMPRESSION: 1. Right ureteral stent in good position. 2. 4 x 2 mm stone in the distal right ureter anterior to the ureteral stent is noted. No evidence f or hydronephrosis. 3. No other visualized renal or ureteral stones. 4. Mildly enlarged spleen. 5. Small amount of airspace disease at both lung bases is likely inflammatory may represent a mild p neumonia. Report Dictated By: Arsalan Patel MD at 06/11/2018 11:29 AM Report E-Signed By: Arsalan Patel MD at 06/11/2018 11:37 AM WSN:[id number]
[2018-06-11] MEDS ORDERED: KETAMINE HCL 200 MG/20 ML MDV ONE (11:52)
[2018-06-11] MEDS ORDERED: IOPAMIDOL-200 50 ML VIAL IS ONE (12:23)
[2018-06-11] MEDS ORDERED: MIDAZOLAM 2 MG/2 ML VIAL IVP PRN (12:50)
[2018-06-11] MEDS ORDERED: ceFAZolin(*) 1 GM VIAL 1 GM in NS(*) 0.9% 100 ML ADDVANT BAG 100 ML IVPB ONE (12:50)
[2018-06-11] MEDS ORDERED: LIDOCAINE/SOD BICARB 8.4% SYR ID ONE (12:50)
[2018-06-11] MEDS ORDERED: NORMOSOL R SOLN(*) 1000 ML BAG 1,000 ML IV PRN (12:50)
[2018-06-11] MEDS ORDERED: FAMOTIDINE 20 MG TAB PO ONE (12:50)
[2018-06-11] MEDS ORDERED: BELLADONNA ALKALOIDS/OPIUM 30 MG SUPP PR ONE (13:36)
[2018-06-11] MEDS ORDERED: KETOROLAC 30 MG/ML VIAL ONE (13:42)
[2018-06-11] MEDS ORDERED: PHEN200T32 PO (14:40)
[2018-06-11 15:15] VITALS: BP 134/77
[2018-06-11] MEDS ORDERED: APAP/HYDROCODONE 325/5 TAB PO ONE (15:20)
[2018-06-11] MEDS ORDERED: PHENAZOPYRIDINE 200 MG TAB PO ONE (15:20)
[2018-06-11 15:30] VITALS: BP 129/80
[2018-06-11] MEDS ORDERED: OXYBUTYNIN CHL XL 5 MG TABCR PO ONE (15:30)
[2018-06-11 15:45] VITALS: BP 126/85
[2018-06-11 15:46] VITALS: BP 115/80
--- NOTE | 2018-06-11 18:38 | RADIOLOGY IMAGING REPORT ---
FACILITY: [facility] - [place] PATIENT NAME: Gage Chapa : 1995 MR: [id number] V: [id number] EXAM DATE: ORDERING PHYSICIAN: VICTOR HUGO SHARMA TECHNOLOGIST: Location: [facility] - [place] Patient: Gage Chapa : 1995 Visit/Account:[id number] Date of Sevice: 06/11/2018 EXAMINATION: Intraoperative fluoroscopy with imaging of the abdomen 06/11/2018 12:03 PM HISTORY: HEMATURIA, STONE COMPARISON: Renal stone CT today FLUOROSCOPY TIME: 30 seconds DOSE: 20.54 mGy IMAGES: 22. FINDINGS: Intraoperative fluoroscopy was provided. Images show retrograde instrumentation on the rig ht and final images show right ureteral stent placement which appears to be well positioned. IMPRESSION: Intraoperative fluoroscopy for right retrograde and stent placement. Report Dictated By: Primitivo Olmos MD at 06/11/2018 6:32 PM Report E-Signed By: Primitivo Olmos MD at 06/11/2018 6:34 PM WSN:[id number]
--- NOTE | 2018-06-12 08:47 | PIERCE CYSTOSCOPY ---
EVENT DATE: June 11, 2018 SURGEON: Macario Carrion MD ANESTHESIOLOGIST: George Baltazar M.D. ANESTHESIA: General PREOPERATIVE DIAGNOSES Right distal impacted renal calculi with indwelling stent. POSTOPERATIVE DIAGNOSES Right distal impacted renal calculi with indwelling stent. PROCEDURES PERFORMED 1. Cystoscopy. 2. Right JJ stent removal. 3. Right distal semi-rigid ureteroscopy with laser fragmentation of stones using dusting settings. 4. Right JJ stent placement. ESTIMATED BLOOD LOSS Minimal. IV FLUIDS Crystalloids. DRAINS 6-Omani x 26 cm Contour stent with string from distal end taped to penis. COMPLICATIONS None. CONDITION The patient was taken to recovery room awake and in stable condition. STATEMENT OF MEDICAL NECESSITY The patient is a 22-year-old white male with a long history of kidney stones who originally presented to the emergency room with right flank pain. He was originally treated conservatively. However, one week later he continued to have pain. On CT scan, he had progressive hydronephrosis on the right side down to a 6x4 mm stone. He was subsequently taken to the operating room on May 31, 2018 for attempted ureteroscopy. However, the stone was densely impacted and was resistant to dilation adjacent to the stone in the ureter. Therefore, a ureteral stent was placed. He is now being returned to the operating room for definitive treatment. DESCRIPTION OF OPERATION PERFORMED The patient was brought to the operating room and after general anesthetic was obtained, he was placed in the dorsal lithotomy position and prepped and draped in the usual sterile manner. Anesthetic cystoscopy was performed with the 21- Omani rigid Anderson sheath and 30-degree lens. He had a normal appearing pendulous, bulbar and membranous urethra. Upon entering the bladder, the stent was seen emanating from the right ureteral orifice. It was grasped at its distal end and brought out through the meatus. The 0.035 guide wire was then advanced into its lumen and advanced in a retrograde manner up to the upper pole calyx. The stent was then removed and this wire was used to place an 8/10 dilating system. A second wire was placed alongside the first wire inside the 10 sheath and the 10 sheath was removed so one wire was secured to the drapes as safety wire. The next wire was then working wire. We used the Anderson semirigid ureteroscope and advanced over the wire. It advanced fairly easily up the distal ureter. His stone was encountered approximately 6 cm above the ureteral orifice. It was oblong and shaped with a somewhat irregular border and yellowish rowe in color. At this point, the 365-micron Holmium laser fiber was introduced with the settings on dusting and in situ intraureteral lithotripsy was performed under direct vision. The stone fragmented fairly easily into dust-like particles over the course of 15 minute treatment. Following this, the laser fiber was removed and the tricep grasping forceps were then loaded. A small remaining fragment of approximately 1x2 mm was grasped and brought out and dropped into the bladder. The scope was then reintroduced and advanced up to above the vessels. No further fragments could be identified of any significance along the course of the ureter from there down to the opening. The scope failed to reveal any evidence of ureteral injury or other anomalies. At this point, I considered not leaving a stent in but given the history of recent stone impaction and distal ureteral manipulation with a rigid scope I felt it would be safe to err on the more conservative side and place a stent at least for 72 hours. Therefore, the safety wire was backloaded into the cystoscope and this was used to place a 6-Omani x 26 cm Contour stent. Good coloring was noted in the renal pelvis by fluoroscopy and in the bladder by direct vision. The patient's bladder was drained through the cystoscopic scope through the cystoscopic sheath. The scope was removed. The string having been left on, the distal end of the string was then put on a Tegaderm and secured to the penile shaft. A B&O suppository was given per rectum at the conclusion of the case. He was awakened in the operating room and taken to the recovery area in stable condition. PLAN The patient will be discharged home today on Colace, [place], Ditropan XL, Pyridium and Motrin. We will plan to see him in the urology clinic on Monday morning to remove his stent using the attached string. Following this, he will need metabolic evaluation and a followup x-ray to ensure his stone-free status and resolution of his hydronephrosis. BELLO
== END 2018-06-11 15:15 | disposition home or self-care (01) ==
LOC: OR 01:30
PROVIDERS: ATTEND Urology
DX: N20.0 Calculus of kidney (principal)
CPT/HCPCS: 52332; 52354; 74176; 76000; 81001; 87088; C1758; C1769; C1894; C2617; J0690; J1100; J1885; J2001; J2250; J2405; J2704; J3010; J3490; J7050; Q9966

== ENCOUNTER → 2018-06-27 | Outpatient (REF) | payer BC | LOC: ZZSENDIN 10:00 | PROVIDERS: ATTEND Urology | DX: N20.0 Calculus of kidney (principal) | CPT/HCPCS: 82365; 88300 ==

== ENCOUNTER → 2018-08-08 | Outpatient (CLI) | payer BC ==
[~2018-08-08] MED LIST changes: -HYDR-4309 PO; +HYDR-653 PO
--- NOTE | 2018-08-08 10:57 | RADIOLOGY IMAGING REPORT ---
FACILITY: [facility] PATIENT NAME: Gage Chapa : 1995 MR: [id number] V: [id number] EXAM DATE: ORDERING PHYSICIAN: VICTOR HUGO SHARMA TECHNOLOGIST: Location: [facility] - [place] Patient: Gage Chapa : 1995 Visit/Account:[id number] Date of Sevice: 08/08/2018 KIDNEYS EXAMINATION: Renal ultrasound. History: History of kidney stones COMPARISON STUDIES: CT abdomen and pelvis June 11, 2018 FINDINGS: Kidneys: Right kidney- 10.5 x 6.1 x 5.7 cm Left kidney- 11.4 x 5 x 5.1 cm Uniform and symmetric blood flow in each kidney by Doppler ultrasound. Hydronephrosis: none Resistive index on the right 0.62 on the left 0.54 There is a slightly lobular contour to both kidneys Bladder: Empty Abdominal aorta and IVC: Aorta and IVC are patent by Doppler ultrasound. IMPRESSION: Slightly lobular contour to both kidneys otherwise unremarkable renal ultrasound Bladder is empty Report Dictated By: Kelsey Paul MD at 08/08/2018 10:52 AM Report E-Signed By: Kelsey Paul MD at 08/08/2018 10:53 AM WSN:[email or web address]
== END ==
LOC: US 01:41
PROVIDERS: ATTEND Urology
DX: N20.0 Calculus of kidney (principal)
CPT/HCPCS: 76705